=== PATIENT | female | born 1950 | race Caucasian/White ===

== ENCOUNTER 2017-02-12 07:30 | Inpatient (IN) ==
[2017-04-11 13:04] LABS: Appearance,Urine CLEAR; Bilirubin,Urine NEG (NEG); Color,Urine YELLOW; Glucose,Urine (UA) NEGATIVE (NEG); Leukocyte Esterase,Urine NEG /uL (NEG); Nitrate,Urine NEG (NEG); Protein,Urine NEG (NEG); Specific Gravity,Urine 1.012 (1.000-1.035); Urine Blood NEG mg/dL (<0.03); Urobilinogen,Urine NEG (NEG)
[2017-04-11 14:05] LABS: Basophils # (Auto) 0 K/mcL (0.0-0.3); Basophils % (Auto) 0.4 % (0.0-2.0); Eosinophils # (Auto) 0.1 K/mcL (0.0-0.7); Eosinophils % (Auto) 1.6 % (0.0-7.0); Granulocytes % (Auto) 63.2 % (38.0-78.0); Lymphocytes # (Auto) 1.5 K/mcL (1.5-4.8); Lymphocytes % (Auto) 26.1 % (15.5-49.0); Mean Cell Volume 92.7 fL (80.0-100.0); Mean Corpuscular HGB Conc 33.7 g/dL (31.0-36.0); Mean Corpuscular Hemoglobin 31.2 pg (26.0-34.0); Monocytes # (Auto) 0.5 K/mcL (0.1-0.9); Monocytes % (Auto) 8.7 % (1.0-12.0); Platelet Count 193 K/mcL (140-440); RBC 4.38 M/mcL (4.00-5.20); Red Cell Distribution Width 13.5 % (11.5-14.5)
[2017-04-11 14:10] LABS: Blood Urea Nitrogen 10 mg/dl (8-23)
[2017-04-17] MEDS ORDERED: ceFAZolin 1 GM VIAL IV SCH (05:00)
[2017-04-17] MEDS ORDERED: oxyCODONE 10 MG TAB.ER.12H PO SCH (05:00)
[2017-04-17] MEDS ORDERED: PREGABALIN 75 MG CAPSULE PO SCH (05:00)
[2017-04-17] MEDS ORDERED: CELECOXIB 200 MG CAPSULE PO SCH (05:00)
[2017-04-17] MEDS ORDERED: KETOROLAC 30 MG, ROPIVACAINE HCL/PF 49.5 ML, EPINEPHrine 0.5 MG, 0.9 % SODIUM CHLORIDE ... IJ SCH (06:30)
[2017-04-17] MEDS ORDERED: ACETAMINOPHEN 1,000 MG/100 ML BOTTLE IV ONE (13:04)
[2017-04-17] MEDS ORDERED: IPRATROPIUM/ALBUTEROL 3 ML AMPUL.NEB NEB PRN (13:04)
[2017-04-17] MEDS ORDERED: diphenhydrAMINE 50 MG/ML VIAL IV PRN (13:04)
[2017-04-17] MEDS ORDERED: LACTATED RINGERS 250 ML IV PRN (13:04)
[2017-04-17] MEDS ORDERED: FLUMAZENIL 0.1 MG/ML ML IV PRN (13:04)
[2017-04-17] MEDS ORDERED: BENZOCAINE/MENTHOL 1 LOZENGE PO PRN ×2 (13:04→13:35)
[2017-04-17] MEDS ORDERED: PROMETHAZINE 25 MG/ML VIAL IV PRN (13:04)
[2017-04-17] MEDS ORDERED: ONDANSETRON 4 MG/2 ML VIAL IV PRN ×2 (13:04→13:35)
[2017-04-17] MEDS ORDERED: MEPERIDINE 25 MG/ML SYRINGE IV PRN (13:04)
[2017-04-17] MEDS ORDERED: NALOXONE HCL 0.4 MG/ML VIAL IV PRN (13:04)
[2017-04-17] MEDS ORDERED: LACTATED RINGERS 1,000 ML IV SCH (13:15)
[2017-04-17] MEDS ORDERED: HYDROmorphone 2 MG/ML SYRINGE IV PRN (13:35)
[2017-04-17] MEDS ORDERED: TRANEXAMIC ACID 1,000 MG/10 ML VIAL IV ONE ×2 (13:35→16:09)
[2017-04-17] MEDS ORDERED: MAGNESIUM HYDROXIDE 30 ML ORAL.SUSP PO PRN (13:35)
[2017-04-17] MEDS ORDERED: POLYETHYLENE GLYCOL 3350 17 GM PACKET PO PRN (13:35)
[2017-04-17] MEDS ORDERED: FLEETS ADULT ENEMA PR PRN (13:35)
[2017-04-17] MEDS ORDERED: BISACODYL 10 MG SUPP.RECT PR PRN (13:35)
--- NOTE | 2017-04-17 13:35 | Brief Operative Note ---
Date of procedure: 04/17/17 Pre-op diagnosis: R knee DJD Post-op diagnosis: same Procedure: Right robotic assisted TKA Grafts/Implants: Yes (Mitchells Triathlon CR 5 femur, 6 tibia, 13 CS insert, 33 patella) Anesthesia: spinal, GLMA Findings: severe arthritis Complications: none Surgeon: Mikhail Cason Environmental Coordinator: Giovany Ellis Estimated blood loss (cc): 30 Specimens Removed/Pathology: none sent Condition: stable Disposition: PACU
[2017-04-17] MEDS ORDERED: PYRIDOXINE HCL PO PRN (13:42)
[2017-04-17] MEDS ORDERED: MELATONIN PO PRN (13:42)
[2017-04-17] MEDS: fentaNYL 100 MCG/2 ML VIAL IV PRN ×4 (14:10→14:40)
[2017-04-17] MEDS: 0.9 % SODIUM CHLORIDE 10 ML SYRINGE IV SCH ×2 (14:13→21:06)
[2017-04-17] MEDS: 0.9 % SODIUM CHLORIDE 1,000 ML IV SCH ×2 (14:16→15:35)
[2017-04-17] MEDS ORDERED: METHOCARBAMOL 1,000 MG/10 ML VIAL IV ONE (14:31)
--- NOTE | 2017-04-17 14:33 | XRay Report ---
CLINICAL INFORMATION: Postsurgical follow-up TECHNIQUE: AP, lateral, patellar views COMPARISON: None. FINDINGS: Status post right total knee arthroplasty. Femoral and tibial complements are in anatomic positions. There is soft tissue and intra-articular postsurgical gas IMPRESSION: Status post right total knee arthroplasty Interpreted and Authenticated by: Jerardo Neil 04/17/17
[2017-04-17] MEDS ORDERED: ONDANSETRON 4 MG/2 ML VIAL IV ONE (16:09)
[2017-04-17] MEDS ORDERED: DEXAMETHASONE 10 MG/ML VIAL IV ONE (16:09)
[2017-04-17] MEDS ORDERED: ePHEDrine 50 MG/ML AMPUL IV ONE (16:09)
[2017-04-17] MEDS ORDERED: KETAMINE 10 MG/ML ML IV ONE (16:09)
[2017-04-17] MEDS ORDERED: PROPOFOL 200 MG/20 ML VIAL IV ONE (16:09)
[2017-04-17] MEDS ORDERED: PHENYLEPHRINE 10 MG/ML VIAL IV ONE (16:09)
[2017-04-17] MEDS ORDERED: LIDOCAINE HCL/PF 100 MG/5 ML SYRINGE IV ONE (16:09)
[2017-04-17] MEDS ORDERED: MIDAZOLAM 5 MG/5 ML VIAL IV ONE (16:09)
[2017-04-17] MEDS ORDERED: GLYCOPYRROLATE 0.2 MG/ML VIAL IV ONE (16:09)
[2017-04-17] MEDS: HYDROcodone/APAP 10/325MG TABLET PO PRN ×2 (16:22→20:38)
[2017-04-17] MEDS: KETOROLAC 15 MG/ML VIAL IV SCH ×2 (17:34→23:33)
[2017-04-17] MEDS: ceFAZolin 1 GM VIAL IV SCH (20:07)
[2017-04-17] MEDS: DOCUSATE SODIUM 100 MG CAPSULE PO SCH (20:07)
[2017-04-17] MEDS: ASPIRIN 325 MG ENTERIC COATED TABLET PO SCH (20:07)
[2017-04-17] MEDS: FLUoxetine HCL 20 MG CAPSULE PO SCH ×2 (20:08→21:07)
[2017-04-17] MEDS: MIRABEGRON 50 MG PO SCH ×2 (20:21→20:37)
[2017-04-17] MEDS ORDERED: CALCIUM (OYSTER SHELL) 500 MG TABLET PO SCH (21:00)
[2017-04-17] MEDS ORDERED: MAGNESIUM OXIDE 400 MG TABLET PO SCH (21:00)
[2017-04-17] MEDS ORDERED: PIROXICAM 20 MG CAPSULE PO SCH (21:00)
[2017-04-17] MEDS ORDERED: SENNOSIDES 1 TABLET PO SCH (21:00)
[2017-04-17] MEDS ORDERED: VITAMIN D3 1,000 UNIT TABLET PO SCH (21:00)
[2017-04-18] MEDS: 0.9 % SODIUM CHLORIDE 1,000 ML IV SCH ×2 (00:28→11:12)
[2017-04-18] MEDS: HYDROcodone/APAP 10/325MG TABLET PO PRN ×4 (00:41→13:59)
[2017-04-18] MEDS: ceFAZolin 1 GM VIAL IV SCH (03:20)
[2017-04-18] MEDS: KETOROLAC 15 MG/ML VIAL IV SCH ×2 (05:27→12:43)
[2017-04-18] MEDS: 0.9 % SODIUM CHLORIDE 10 ML SYRINGE IV SCH ×2 (05:30→14:00)
--- NOTE | 2017-04-18 07:45 | Discharge Summary ---
Providers - Providers Patient information: Note initiated : 04/18/17 at 7:43 am Service Date, if different from initiated Date: [] Patient: Winnie Martini 66 y/o F admitted on 04/17/17 for Right Total Knee Arthroplasty - [place]. Chief Complaint: [] Discharge date: 04/18/17 Hospitalization Hospital course: Pt was admitted for a TKA. She underwent the procedure on the day of admission and discharged on post-op day 1. She will f/u at [facility] in 2 weeks and call prior with any questions or concerns. Discharge diagnosis: R knee osetoarthrosis Exam - Exam Incision draining: Yes (mild bloody drainage) Clean and dry: Yes Weight bearing status: as tolerated Ortho Discharge - TKA - Patient Instructions Diet: Regular Diet Activity: activity as tolerated Total Knee Protocol: For Total Knee: Start ROM TJ with stationary bike or rocking chair. Work on gaining full extension of knee. Posterior dislocation precautions provided. Hip abductor strengthening and gait training instructions provided. Apply Cryocuff as instructed. Dressing Care: May shower in 2 days - Follow Up Plan Disposition: Home, Self-Care Prognosis: Good Rehab Potential: Good Overall status at discharge: patient is progressing back to baseline - Orders For Discharge Prescriptions: Aspirin [Ecotrin] 325 mg PO BID #30 tab.ec HYDROcodone/APAP 10/325MG [[place] 10/325Mg] 1 - 2 tab PO Q4HP PRN #90 tab PRN Reason: Pain Level 3-6 Pending Studies Resuscitation Status Full Code Diet Regular Diet Start SatApr 17 Dinner Hydrocodone Bitart/Acetaminophen ([place] 10/325mg) 0 tab PO Q4HP PRN PRN Reason: PAIN LEVEL 3-6 Last Admin: 04/18/17 05:35 Dose: 2 tab Admin: 04/18/17 00:41 Dose: 2 tab Admin: 04/17/17 20:38 Dose: 2 tab Admin: 04/17/17 16:22 Dose: 2 tab Aspirin (Ecotrin) 325 mg PO BID [facility] Last Admin: 04/17/17 20:07 Dose: 325 mg Calcium Carbonate/Glycine (Oscal) 500 mg PO HS [facility] Last Admin: 04/17/17 20:08 Dose: 500 mg Docusate Sodium (Colace) 100 mg PO BID [facility] Last Admin: 04/17/17 20:07 Dose: 100 mg Fluoxetine HCl (Prozac) 10 mg PO [facility] Last Admin: 04/17/17 21:07 Dose: Hydromorphone HCl (Dilaudid) 0 mg IV Q2HP PRN PRN Reason: PAIN LEVEL > 6 Last Admin: 04/17/17 15:34 Dose: 1 mg Sodium Chloride (Sodium Chloride 0.9%) 1,000 mls @ 100 mls/hr IV .Q10H [facility] Last Infusion: 04/18/17 00:50 Dose: 0 mls/hr Admin: 04/18/17 00:28 Dose: Admin: 04/17/17 15:35 Dose: 100 mls/hr Admin: 04/17/17 14:16 Dose: Not Given Ketorolac Tromethamine (Toradol) 15 mg IV Q6 [facility] Stop: 04/19/17 12:01 Last Admin: 04/18/17 05:27 Dose: 15 mg Admin: 04/17/17 23:33 Dose: 15 mg Admin: 04/17/17 17:34 Dose: 15 mg Magnesium Oxide (Magnesium Oxide) 400 mg PO [facility] Last Admin: 04/17/17 20:07 Dose: 400 mg Mirabegron [ (Myrbetriq] 50 Mg Cap) 1 dose PO [facility] Last Admin: 04/17/17 20:37 Dose: Piroxicam (Piroxicam) 20 mg PO [facility] Last Admin: 04/17/17 20:20 Dose: Senna (Senokot) 2 tab PO [facility] Last Admin: 04/17/17 20:08 Dose: 2 tab Sodium Chloride (Saline Flush) 10 ml IV Q8 [facility] Last Admin: 04/18/17 05:30 Dose: 10 ml Admin: 04/17/17 21:06 Dose: Not Given Admin: 04/17/17 14:13 Dose: Not Given Vitamin D (Vitamin D3) 2,000 unit PO [facility] Last Admin: 04/17/17 20:08 Dose: 2,000 unit Shift Summary 04/18/17 03:48 Shift Summary by Danny Rich VSS on 2L O2. Pt does not wear O2 at home but has hx of desating after surgical procedures, so O2 remained in place through night. Scott draining clear, yellow urine. 1,100mL UOP this shift. Plan to d/c Scott before shift change. Tolerating diet and oral fluids w/no complaints of nausea. IV to left forearm SL. Receiving scheduled Toradol and 2 [place]'s, last dose @ 0040. Dressing to right knee CDI. Shadow drainage present and circled, has not increased in size since beginning of shift. Ambulated in halls x1 this shift. Uses cryocuff, AV boots and IS. Right lung removed in 2004. Very pleasant and cooperative w/cares. Initialized on 04/18/17 03:48 - END OF NOTE
--- NOTE | 2017-04-18 08:49 | Operative Note ---
DATE OF OPERATION: 04/17/2017 PREOPERATIVE DIAGNOSIS: Right knee severe osteoarthritis. POSTOPERATIVE DIAGNOSIS: Right knee severe osteoarthritis. PROCEDURE PERFORMED: Right robotic-assisted total knee arthroplasty using a size 5 cruciate retaining femoral component, a size 6 tibial base plate, a 13 mm X3 cruciate substituting polyethylene, and a 36 mm patellar button. SURGEON: Mikhail Cason M.D. SENIOR CONTRACT SPECIALIST: Rakesh Ellis PA-C. ANESTHESIA: Spinal plus general. DRAINS: None. SPECIMENS: Bone cuts, which were discarded. BLOOD LOSS: 30 mL. COMPLICATIONS: None. POSTOPERATIVE CONDITION: Stable. INDICATIONS FOR SURGERY: This is a 66-year-old female who has had longstanding progressive worsening right knee pain. Radiographs showed severe [place] osteoarthritis. FINDINGS AT SURGERY: As above. Post-fixation showed satisfactory limb alignment, stability, and patellar tracking. PROCEDURE IN DETAIL: The patient had been seen preoperatively. Informed consent had been obtained after discussion of risks and benefits of surgery. Risks including, but not limited to, bleeding, possibly requiring transfusion; infection, possibly requiring implant removal and prolonged IV antibiotics; injury to nerves, blood vessels, and other surrounding structures; anesthetic risks; incomplete or no resolution of symptoms; swelling; stiffness; pain; instability; clunking; DVT and pulmonary embolus risks; and the possibility of needing further revision surgery. She understood these risks and wished to proceed. Correct operative site was marked and then patient was taken to the operating room after spinal anesthesia was given. She was carefully positioned on the operating table, and LMA general given. The right lower extremity was then carefully prepped and draped in normal sterile fashion, and a time-out was performed verifying patient name, operative site, and plan. A standard incision was made over the knee with a scalpel through skin and subcutaneous tissue, continued down onto the extensor mechanism, and then Irrisept was irrigated. A knife was then used to make a medial parapatellar arthrotomy. Subperiosteal exposure was done of the anterior medial tibia and the anterior cortex of the distal femur. We also excised the anterior horns of the menisci and transected what remained of the ACL. We then placed our femoral and tibial checkpoints. Two stab incisions were made over the tibia and two over the femur, and we placed bicortical pins and connected the arrays. We then checked our hip center of rotation, as well as marked our medial and lateral malleoli. The check points were double-checked and then we used the probe to do our mapping. Once this was completed, we then used rongeur to remove osteophytes and then we checked our flexion and extension gaps with spoons. We adjusted implant so our gap was approximately 17 or 18 mm throughout. We did have to move the femoral component proximal just to even contact any of the bone laterally. Once we liked our position, this was put into the robotic assistance, and then we went ahead and used the Jiujiuwe[employer]ang robotic arm to make our bone cuts. Once this was completed, we then placed our tibial baseplate trial in place after marking our rotation. We then drilled pins, and boss reamer and keel punch were used to prepare the tibia. We then placed a keeled tibial trial. Femur was elevated, and we used bipolar cautery wand to try and seal any bleeders. We then impacted our femoral component trial in place, placing this is as far lateral as bone coverage would allow. This was pinned and holes were made in the distal femur for the pegs. Once this was completed, we then chose a 9 insert trial. The insert was impacted and then the knee taken into extension. The patella was then measured, freehand resected and measured again. It showed slight over-resection. We medialized maximally as bone coverage would allow and then placed a size 36. The peg holes were drilled and then the insert trial was placed. The saw was used to perform a limited lateral facetectomy. We then checked our patellar tracking which still had a tendency to want track lateral. We went ahead and removed trial components. Definitive implants were opened. The joint was filled with Irrisept. After waiting a minute pulse lavaged with saline and then CO2 gun was used to clean the cancellous bone surfaces. [place] with gentamicin was mixed and the tibial component was cemented followed by the femur. Excess cement was removed and then a 9 insert trial placed. The knee was taken into extension. Patellar button was cemented. While cement was hardening, we filled the joint with Irrisept and then injected pain cocktail into the pericapsular and subcutaneous tissues. Once cement had fully hardened, we then went to reduce the patella and checked range of motion, but again the patella was tracking lateral, so we went ahead and did a lateral release with Rajan starting level with the superior aspect of the patella, 1 cm lateral to it, and then extended distally to the tibia. We did feel like her knee was hyperextending some so we went up to a size 11 trial. This improved significantly, but there was still some tendency to hyperextend so we went up to a 13 CS, which we opened. We pulse lavaged and then impacted the insert. We then irrigated Irrisept. After that, we went ahead and removed our checkpoints and removed our pins from the tibia and femur. We pulse lavaged with saline and the knee was placed in about 45 degrees of flexion. Interrupted #2 FiberWire stitches were placed around the superior quadrant, interrupted #1 Vicryl around the inferior quadrant, running #1 Vicryl for patellar tendon and quad tendon. We then irrigated with Irrisept one final time, after a minute pulse lavage, and then 2-0 Monocryl for subcutaneous and rommel for skin. Xeroform and sterile dressing were applied over all incisions. The patient was then awakened, extubated, and transferred to recovery in stable condition. LUIS MIGUEL:steve Job ID: [id number] Doc ID: [id number] Mikhail Cason MD
[2017-04-18] MEDS: DOCUSATE SODIUM 100 MG CAPSULE PO SCH (09:35)
[2017-04-18] MEDS: ASPIRIN 325 MG ENTERIC COATED TABLET PO SCH (09:35)
== END 2017-04-18 16:10 | disposition home or self-care (01) | DRG 470 ==
LOC: MEDSUR 04-17 08:11
PROVIDERS: ADMIT Orthopaedic Surgery; ATTEND Orthopaedic Surgery